=== PATIENT | male | born 1940 | race Caucasian/White ===

== ENCOUNTER 2018-04-23 02:56 | Outpatient (CLI) | payer MEDICARE, MEDICAID, SELFPAY ==
[2018-04-23 15:45] LABS: Anion Gap 11.5 mmol/L (3-11); BUN 33 mg/dL (7-18); CO2 27.5 mmol/L (21.0-32.0); CREATININE 1.66 mg/dL (0.70-1.30); Calcium 8.4 mg/dL (8.5-10.1); Chloride 101 mmol/L (98-107); Estimated GFR 40.59 (mL/min/1.73m2); Glucose 224 mg/dL (70-100); Potassium 4.3 mmol/L (3.5-5.1); Sodium 140 mmol/L (136-145)
== END 2018-04-23 02:57 ==
PROVIDERS: PCP Family Medicine; Visit Provider Family Medicine
DX: N18.3 Chronic kidney disease, stage 3 (moderate) (principal)
CPT/HCPCS: 36415; 80048

== ENCOUNTER 2018-05-30 11:00 | Outpatient (CLI) | payer MEDICARE, MEDICAID, SELFPAY ==
[2018-05-30 12:30] LABS: Anion Gap 9.5 mmol/L (3-11); BUN 27 mg/dL (7-18); CO2 26.5 mmol/L (21.0-32.0); CREATININE 1.28 mg/dL (0.70-1.30); Calcium 8.6 mg/dL (8.5-10.1); Chloride 103 mmol/L (98-107); Estimated GFR 54.79 (mL/min/1.73m2); Glucose 175 mg/dL (70-100); Potassium 4.6 mmol/L (3.5-5.1); Sodium 139 mmol/L (136-145)
== END 2018-05-30 11:20 ==
PROVIDERS: PCP Family Medicine; Visit Provider Family Medicine
DX: M79.89 Other specified soft tissue disorders (principal)
CPT/HCPCS: 36415; 80048

== ENCOUNTER 2019-04-28 14:23 | Outpatient (CLI) | payer MEDICARE, MEDICAID, SELFPAY ==
[2019-04-28 15:27] LABS: Anion Gap 10.1 mmol/L (3-11); BUN 43 mg/dL (7-18); CO2 27.9 mmol/L (21.0-32.0); CREATININE 1.54 mg/dL (0.70-1.30); Calcium 8.8 mg/dL (8.5-10.1); Chloride 105 mmol/L (98-107); Estimated GFR 44.14 (mL/min/1.73m2); Glucose 225 mg/dL (70-100); Sodium 143 mmol/L (136-145)
== END 2019-04-28 14:43 ==
PROVIDERS: PCP Family Medicine; Visit Provider Family Medicine
DX: R60.0 Localized edema (principal)
CPT/HCPCS: 36415; 80048